=== PATIENT | male | born 1985 | race Two or more races ===

== ENCOUNTER 2020-08-20 12:07 | Inpatient (IN) ==
[2020-08-20] MEDS ORDERED: cefTRIAXone SODIUM 2,000 MG/70 ML BAG IV STA (12:42)
[2020-08-20] MEDS ORDERED: SODIUM CHLORIDE 0.9% 1000ML 2,000 ML IV ONE (12:44)
[2020-08-20] MEDS ORDERED: LORazepam 1 MG/2 ML VIAL IV STA (12:45)
[2020-08-20] MEDS ORDERED: SODIUM CHLORIDE 0.9% 1000ML 1,000 ML IV SCH (12:45)
--- NOTE | 2020-08-20 12:53 | Emergency Department Note ---
Impression & Plan Cellulitis, Hallucinations, Arm pain, left, Leukocytosis, Tachycardia ED Provider Note NAME: SIVAN BRITT AGE: 35 SEX: M : 1985 ARRIVES VIA: [employer] INFORMANT: Patient ED PROVIDER(S): Shady Lovelace DO CHIEF COMPLAINT: Visual and auditory hallucinations HPI: Patient is a 35-year-old male patient who presents to the ER brought in by police. He was driving erratically and was found in the parking lot and he was thinking people were in the back of the truck. He thinks people are in the room. He has a history of previous 302 days. 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 He does appear to be from [place] based on what police gathered. Denies any headache or change in vision. Admits to previous IV drug use. No chest pain or belly pain. Admits to wound on his left medial ankle and has pain on his left forearm. Notes that his arm has been hurting for several days. Denies any chest pain or shortness of breath. ROS: See above HPI for pertinent positives & negatives. A total of 10 systems reviewed and were otherwise negative. PAST MEDICAL HISTORY:See Below PAST SURGICAL HISTORY:See Below FAMILY HISTORY:See Below SOCIAL HISTORY:See Below HOME MEDICATIONS:See Below ALLERGIES:See Below VITALS:See Below PHYSICAL EXAMINATION: GENERAL: Sitting up in bed, alert, anxious, disheveled, continually repeats that he feels the bed is moving and is jittery. EYE EXAM: normal conjunctiva. OROPHARYNX: no exudate, no erythema, lips, buccal mucosa, and tongue normal and mucous membranes are moist NECK: supple, no nuchal rigidity, no adenopathy, non-tender LUNGS: Clear to auscultation. Normal chest wall mechanics HEART: Tachycardic, S1 normal and S2 normal ABDOMEN: abdomen soft, non-tender, normo-active bowel sounds, no masses, no rebound or guarding. BACK: Back is symmetrical on inspection and there is no deformity, no midline tenderness, no CVA tenderness. SKIN: no rashes and no bruising UPPER EXTREMITIES: Tattoos on upper extremities with firm redness over the left dorsal proximal forearm LOWER EXTREMITIES: No pitting edema. NEURO EXAM: N oriented to person, place and year, cranial nerves II-XII grossly intact, normal speech, no gross weakness of arms, no gross weakness of legs. PSYCH: Exhibiting clear visual and auditory hallucinations while sitting in the room moving around in the bed MEDICAL DECISION MAKING: Patient is a 35-year-old male who presents the ER brought in on a 302 petition. He is having visual and auditory hallucinations. On exam he has clear infection of his left forearm. IV was difficult to obtain secondary to lack of access/sites. Multiple times were obtained. Eventually obtained blood work which showed leukocytosis of 14,000. No significant anemia. INR was unremar kable. BMP along with LFTs was normal. Troponin was negative. Lactate was negative. Tox was negative including alcohol. Covid was negative. Ultrasound showed no focal abscess. Chest x-ray was unremarkable. He had difficulty sitting still for IV placement and was sedated with Haldol and Ativan due to the difficulty of obtaining an IV site. Patient to become slightly hypoxic. He was given IV fluids. Discussed the hospitalist admitted for further work-up. Triage Nursing notes reviewed. Limited review of prior medical records performed Vital Signs: reviewed and remarkable for tachy Differential diagnosis: Differential diagnoses includes but is not limited to toxic, metabolic, infectious, traumatic, cardiac, neurologic, hematologic, psychiatric and inflammatory etiologies. ER treatment provided: See below Diagnostics interpreted by me: ECG: Sinus tachycardia rate of 138 Normal axis No PVCs QTC 451 Cardiac Monitoring: An order was placed for continuous cardiac monitoring. The monitor shows a rate of 134 with sinus rhythm. Laboratory studies: As stated above and show below. Imaging studies: Portable AP upright 1 view of the chest shows no focal infiltrate pneumothorax Ultrasound left forearm shows no focal abscess Consultation(s): Discussed with Dr. Tomy Gifford for further evaluation Procedures: none Critical Care: None Past Med/Surg History Social History Smoking Status: Unknown if ever smoked Hx Alcohol Use: Yes (UNKNOWN - OBTUNDED) Hx Substance Use: Yes (UNKNOWN - OBTUNDED) Beliefs That Will Affect Care: None Current Living Situation: Other Current Living Situation Comment: UNKNOWN Results & Data (ED) Vital Signs Vital Signs - 24 hr 08/20/20 12:08 08/20/20 14:17 08/20/20 14:25 Temperature 37.2 C Temperature Source Oral Pulse Rate 133 H Pulse Rate [Right Finger] 124 H Respiratory Rate 20 24 Respiratory Effort / Characteristics Non-Labored Non-Labored Non-Labored Respiratory Depth Normal Blood Pressure 150/112 H Blood Pressure [Right Arm] 129/88 Blood Pressure Mean 124 Blood Pressure Mean [Right Arm] 101 Pulse Oximetry 99 99 99 Oxygen Delivery Method Room Air Room Air Room Air Oxygen Flow Rate Oxygen Flow Rate - Titration Pulse Oximetry Post Tiitration 08/20/20 16:00 08/20/20 16:01 08/20/20 16:50 Temperature Temperature Source Pulse Rate Pulse Rate [Right Finger] 109 H Respiratory Rate 22 16 Respiratory Effort / Characteristics Non-Labored Respiratory Depth Blood Pressure Blood Pressure [Right Arm] 104/62 Blood Pressure Mean Blood Pressure Mean [Right Arm] 76 Pulse Oximetry 93 93 89 L Oxygen Delivery Method Room Air Room Air Nasal Cannula Oxygen Flow Rate 0 Oxygen Flow Rate - Titration 2 Pulse Oximetry Post Tiitration 94 08/20/20 16:59 Temperature Temperature Source Pulse Rate Pulse Rate [Right Finger] 105 H Respiratory Rate 16 Respiratory Effort / Characteristics Respiratory Depth Blood Pressure Blood Pressure [Right Arm] 109/61 Blood Pressure Mean Blood Pressure Mean [Right Arm] 77 Pulse Oximetry 96 Oxygen Delivery Method Nasal Cannula Oxygen Flow Rate 2 Oxygen Flow Rate - Titration Pulse Oximetry Post Tiitration Laboratory Data Result diagrams: 08/20/20 14:03 08/20/20 14:03 Lab Results 08/20/20 08/20/20 08/20/20 Range/Units 13:50 13:50 14:03 WBC 14.19 H (4.8-10.8) K/uL RBC 4.56 L (4.7-6.1) M/uL Hgb 13.7 L (14.0-18.0) g/dL POC Hgb (14.0-18.0) g/dl Hct 38.4 L (42-52) % POC Hct (42-52) % MCV 84.2 (80-100) fL MCH 30.0 (25-34) pg MCHC 35.7 (32-36) g/dL RDW Std Deviation 42.5 (36.4-46.3) fL RDW Coeff of Kiara 13.8 (11.5-14.5) % Plt Count 157 (130-400) K/uL MPV 11.4 H (7.4-10.4) fL Immature Gran % (Auto) 0.2 % Neut % (Auto) 85.0 % Lymph % (Auto) 8.7 % [place] % (Auto) 5.6 % Eos % (Auto) 0.4 % Baso % (Auto) 0.1 % Neut # (Auto) 12.08 H (1.4-6.5) K/uL Lymph # (Auto) 1.23 (1.2-3.4) K/uL [place] # (Auto) 0.79 H (0.11-0.59) K/uL Eos # (Auto) 0.05 (0-0.5) K/uL Baso # (Auto) 0.01 (0-0.2) K/uL Immature Gran # (Auto) 0.03 H (0.00-0.02) K/uL PT (9.0-12.0) Seconds INR (0.9-1.1) APTT (21.0-31.0) Seconds PTT Ratio POC Sodium (135-144) mmol/L Sodium (136-145) mmol/L POC Potassium (3.3-5.0) mmol/L Potassium (3.5-5.1) mmol/L POC Chloride (101-112) mmol/L Chloride (98-107) mmol/L Carbon Dioxide (21-32) mmol/L POC Total CO2 (24-31) mmol/L Anion Gap (3-11) POC Anion Gap (16-25) mmol/L POC BUN (7-18) mg/dl BUN (7-18) mg/dl Creatinine (0.6-1.4) mg/dl POC Creatinine (0.6-1.3) mg/dl Est Cr Clr Drug Dosing ml/min Est GFR ( Amer) Est GFR (Non-Af Amer) BUN/Creatinine Ratio (10-20) Glucose (70-99) mg/dl POC Glucose (other) (70-99) mg/dl Lactate (0.4-2.0) mmol/L Calcium (8.5-10.1) mg/dl POC Ioniz Calcium Kylie (1.12-1.32) mmol/l Magnesium (1.8-2.4) mg/dl Total Bilirubin (0.2-1) mg/dl AST (15-37) U/L ALT (12-78) U/L Alkaline Phosphatase (45-117) U/L Troponin I (0-0.045) ng/ml Total Protein (6.4-8.2) gm/dl Albumin (3.4-5.0) gm/dl Globulin (2.5-4.0) gm/dl Albumin/Globulin Ratio (0.9-2) Procalcitonin (0-0.5) ng/ml TSH (0.300-4.500) uIu/ml Salicylates (2.8-20) mg/dl Acetaminophen (10-30) ug/ml Ethyl Alcohol mg/dL (0-3) mg/dl COVID-19 Eval [address] CovFluRsv at [facility] SARS-CoV-2 (PCR) NEGATIVE (Negative) Influenza Type A (PCR) Negative (Neg) Influenza Type B (PCR) Negative (Neg) RSV (RT-PCR) Negative (Neg) 08/20/20 08/20/20 08/20/20 Range/Units 14:03 14:03 14:03 WBC (4.8-10.8) K/uL RBC (4.7-6.1) M/uL Hgb (14.0-18.0) g/dL POC Hgb (14.0-18.0) g/dl Hct (42-52) % POC Hct (42-52) % MCV (80-100) fL MCH (25-34) pg MCHC (32-36) g/dL RDW Std Deviation (36.4-46.3) fL RDW Coeff of Kiara (11.5-14.5) % Plt Count (130-400) K/uL MPV (7.4-10.4) fL Immature Gran % (Auto) % Neut % (Auto) % Lymph % (Auto) % [place] % (Auto) % Eos % (Auto) % Baso % (Auto) % Neut # (Auto) (1.4-6.5) K/uL Lymph # (Auto) (1.2-3.4) K/uL [place] # (Auto) (0.11-0.59) K/uL Eos # (Auto) (0-0.5) K/uL Baso # (Auto) (0-0.2) K/uL Immature Gran # (Auto) (0.00-0.02) K/uL PT (9.0-12.0) Seconds INR (0.9-1.1) APTT (21.0-31.0) Seconds PTT Ratio POC Sodium (135-144) mmol/L Sodium 138 (136-145) mmol/L POC Potassium (3.3-5.0) mmol/L Potassium 3.7 (3.5-5.1) mmol/L POC Chloride (101-112) mmol/L Chloride 105 (98-107) mmol/L Carbon Dioxide 28 (21-32) mmol/L POC Total CO2 (24-31) mmol/L Anion Gap 5.0 (3-11) POC Anion Gap (16-25) mmol/L POC BUN (7-18) mg/dl BUN 14 (7-18) mg/dl Creatinine 0.93 (0.6-1.4) mg/dl POC Creatinine (0.6-1.3) mg/dl Est Cr Clr Drug Dosing 129.6 ml/min Est GFR ( Amer) 122.8 Est GFR (Non-Af Amer) 106.0 BUN/Creatinine Ratio 14.7 (10-20) Glucose 116 H (70-99) mg/dl POC Glucose (other) (70-99) mg/dl Lactate (0.4-2.0) mmol/L Calcium 8.9 (8.5-10.1) mg/dl POC Ioniz Calcium Kylie (1.12-1.32) mmol/l Magnesium 2.1 (1.8-2.4) mg/dl Total Bilirubin 0.6 (0.2-1) mg/dl AST 14 L (15-37) U/L ALT 26 (12-78) U/L Alkaline Phosphatase 77 (45-117) U/L Troponin I < 0.015 (0-0.045) ng/ml Total Protein 8.3 H (6.4-8.2) gm/dl Albumin 4.0 (3.4-5.0) gm/dl Globulin 4.3 H (2.5-4.0) gm/dl Albumin/Globulin Ratio 0.9 (0.9-2) Procalcitonin (0-0.5) ng/ml TSH 0.905 (0.300-4.500) uIu/ml Salicylates < 1.7 L (2.8-20) mg/dl Acetaminophen < 2 L (10-30) ug/ml Ethyl Alcohol mg/dL < 3.0 (0-3) mg/dl COVID-19 Eval Order SARS-CoV-2 (PCR) (Negative) Influenza Type A (PCR) (Neg) Influenza Type B (PCR) (Neg) RSV (RT-PCR) (Neg) 08/20/20 08/20/20 08/20/20 Range/Units 14:03 14:03 14:03 WBC (4.8-10.8) K/uL RBC (4.7-6.1) M/uL Hgb (14.0-18.0) g/dL POC Hgb (14.0-18.0) g/dl Hct (42-52) % POC Hct (42-52) % MCV (80-100) fL MCH (25-34) pg MCHC (32-36) g/dL RDW Std Deviation (36.4-46.3) fL RDW Coeff of Kiara (11.5-14.5) % Plt Count (130-400) K/uL MPV (7.4-10.4) fL Immature Gran % (Auto) % Neut % (Auto) % Lymph % (Auto) % [place] % (Auto) % Eos % (Auto) % Baso % (Auto) % Neut # (Auto) (1.4-6.5) K/uL Lymph # (Auto) (1.2-3.4) K/uL [place] # (Auto) (0.11-0.59) K/uL Eos # (Auto) (0-0.5) K/uL Baso # (Auto) (0-0.2) K/uL Immature Gran # (Auto) (0.00-0.02) K/uL PT 10.9 (9.0-12.0) Seconds INR 1.1 (0.9-1.1) APTT 25.3 (21.0-31.0) Seconds PTT Ratio 1.0 POC Sodium (135-144) mmol/L Sodium (136-145) mmol/L POC Potassium (3.3-5.0) mmol/L Potassium (3.5-5.1) mmol/L POC Chloride (101-112) mmol/L Chloride (98-107) mmol/L Carbon Dioxide (21-32) mmol/L POC Total CO2 (24-31) mmol/L Anion Gap (3-11) POC Anion Gap (16-25) mmol/L POC BUN (7-18) mg/dl BUN (7-18) mg/dl Creatinine (0.6-1.4) mg/dl POC Creatinine (0.6-1.3) mg/dl Est Cr Clr Drug Dosing ml/min Est GFR ( Amer) Est GFR (Non-Af Amer) BUN/Creatinine Ratio (10-20) Glucose (70-99) mg/dl POC Glucose (other) (70-99) mg/dl Lactate 1.3 (0.4-2.0) mmol/L Calcium (8.5-10.1) mg/dl POC Ioniz Calcium Kylie (1.12-1.32) mmol/l Magnesium (1.8-2.4) mg/dl Total Bilirubin (0.2-1) mg/dl AST (15-37) U/L ALT (12-78) U/L Alkaline Phosphatase (45-117) U/L Troponin I (0-0.045) ng/ml Total Protein (6.4-8.2) gm/dl Albumin (3.4-5.0) gm/dl Globulin (2.5-4.0) gm/dl Albumin/Globulin Ratio (0.9-2) Procalcitonin < 0.05 (0-0.5) ng/ml TSH (0.300-4.500) uIu/ml Salicylates (2.8-20) mg/dl Acetaminophen (10-30) ug/ml Ethyl Alcohol mg/dL (0-3) mg/dl COVID-19 Eval Order SARS-CoV-2 (PCR) (Negative) Influenza Type A (PCR) (Neg) Influenza Type B (PCR) (Neg) RSV (RT-PCR) (Neg) 08/20/20 Range/Units 14:11 WBC (4.8-10.8) K/uL RBC (4.7-6.1) M/uL Hgb (14.0-18.0) g/dL POC Hgb 13.6 L (14.0-18.0) g/dl Hct (42-52) % POC Hct 40 L (42-52) % MCV (80-100) fL MCH (25-34) pg MCHC (32-36) g/dL RDW Std Deviation (36.4-46.3) fL RDW Coeff of Kiara (11.5-14.5) % Plt Count (130-400) K/uL MPV (7.4-10.4) fL Immature Gran % (Auto) % Neut % (Auto) % Lymph % (Auto) % [place] % (Auto) % Eos % (Auto) % Baso % (Auto) % Neut # (Auto) (1.4-6.5) K/uL Lymph # (Auto) (1.2-3.4) K/uL [place] # (Auto) (0.11-0.59) K/uL Eos # (Auto) (0-0.5) K/uL Baso # (Auto) (0-0.2) K/uL Immature Gran # (Auto) (0.00-0.02) K/uL PT (9.0-12.0) Seconds INR (0.9-1.1) APTT (21.0-31.0) Seconds PTT Ratio POC Sodium 138 (135-144) mmol/L Sodium (136-145) mmol/L POC Potassium 3.8 (3.3-5.0) mmol/L Potassium (3.5-5.1) mmol/L POC Chloride 101 (101-112) mmol/L Chloride (98-107) mmol/L Carbon Dioxide (21-32) mmol/L POC Total CO2 28 (24-31) mmol/L Anion Gap (3-11) POC Anion Gap 14.0 L (16-25) mmol/L POC BUN 17 (7-18) mg/dl BUN (7-18) mg/dl Creatinine (0.6-1.4) mg/dl POC Creatinine 0.8 (0.6-1.3) mg/dl Est Cr Clr Drug Dosing ml/min Est GFR ( Amer) Est GFR (Non-Af Amer) BUN/Creatinine Ratio (10-20) Glucose (70-99) mg/dl POC Glucose (other) 122 H (70-99) mg/dl Lactate (0.4-2.0) mmol/L Calcium (8.5-10.1) mg/dl POC Ioniz Calcium Kylie 1.09 L (1.12-1.32) mmol/l Magnesium (1.8-2.4) mg/dl Total Bilirubin (0.2-1) mg/dl AST (15-37) U/L ALT (12-78) U/L Alkaline Phosphatase (45-117) U/L Troponin I (0-0.045) ng/ml Total Protein (6.4-8.2) gm/dl Albumin (3.4-5.0) gm/dl Globulin (2.5-4.0) gm/dl Albumin/Globulin Ratio (0.9-2) Procalcitonin (0-0.5) ng/ml TSH (0.300-4.500) uIu/ml Salicylates (2.8-20) mg/dl Acetaminophen (10-30) ug/ml Ethyl Alcohol mg/dL (0-3) mg/dl COVID-19 Eval Order SARS-CoV-2 (PCR) (Negative) Influenza Type A (PCR) (Neg) Influenza Type B (PCR) (Neg) RSV (RT-PCR) (Neg) Administered Medications Vancomycin HCl 2,000 mg/ (Sodium Chloride) 540 mls @ 200 mls/hr IV NOW ONE Stop: 08/20/20 20:11 Last Admin: 08/20/20 17:33 Dose: 200 mls/hr Documented by: [id number] Discontinued Medications Ceftriaxone Sodium (Ceftriaxone Sodium 2000mg/70ml D5w) Confirm Administered Dose 2,000 mg IV .STK-MED ONE Stop: 08/20/20 16:36 Last Admin: 08/20/20 16:40 Dose: Not Given Documented by: [id number] Haloperidol Lactate (Haloperidol Lactate 5 Mg/Ml 1 Ml Vial) 10 mg IM NOW STA Stop: 08/20/20 15:11 Last Admin: 08/20/20 15:15 Dose: 10 mg Documented by: [id number] Sodium Chloride (Nss 1000ml) 1,000 mls @ 999 mls/hr IV .Q1H1M KAREEM Stop: 08/20/20 13:43 Last Admin: 08/20/20 17:33 Dose: 999 mls/hr Documented by: [id number] Ceftriaxone Sodium (Rocephin) 2,000 mg in 70 mls @ 140 mls/hr IV NOW STA Stop: 08/20/20 13:11 Last Infusion: 08/20/20 17:10 Dose: 0 mls/hr Documented by: [id number] Admin: 08/20/20 16:38 Dose: 140 mls/hr Documented by: [id number] Sodium Chloride (Nss 1000ml) 2,000 mls @ 999 mls/hr IV .Q2H1M ONE Stop: 08/20/20 14:44 Last Admin: 08/20/20 16:38 Dose: 999 mls/hr Documented by: [id number] Lorazepam (Ativan) 1 mg in 2 mls @ 2 mls/min IV NOW STA Stop: 08/20/20 12:46 Last Admin: 08/20/20 16:40 Dose: Not Given Documented by: [id number] Lorazepam (Lorazepam 1 Mg Tab) 2 mg SL NOW STA Stop: 08/20/20 13:37 Last Admin: 08/20/20 13:55 Dose: 2 mg Documented by: [id number] Lorazepam (Lorazepam 2 Mg/Ml Vial (Im Use)) 2 mg IM NOW STA Stop: 08/20/20 15:12 Last Admin: 08/20/20 15:15 Dose: 2 mg Documented by: [id number] Discharge Plan Visit Data Chief Complaint: Mental Health Evaluation ED Provider: Shady Lovelace Discharge Problem: Cellulitis, Hallucinations, Arm pain, left, Leukocytosis, Tachycardia Patient Disposition: Admitted As Inpatient Discharge Instructions Interventions: ED Discharge Assessment Last Done: 08/20/20 17:45 Discharge Problem: Cellulitis Qualifiers: Site of cellulitis: unspecified site Qualified Code(s): L03.90 - Cellulitis, unspecified Leukocytosis Qualifiers: Leukocytosis type: unspecified Qualified Code(s): D72.829 - Elevated white blood cell count, unspecified
--- NOTE | 2020-08-20 13:12 | XRay Report ---
XR chest 1V portable CLINICAL HISTORY: Sepsis. COMPARISON STUDY: No previous studies for comparison. FINDINGS: Lung volumes are at the lower limits of normal. Lungs are clear. There is no pneumothorax o r pleural effusion. Cardiac size is normal. Mediastinal contours are normal. There is no evidence for pulmonary edema. IMPRESSION: No acute cardiopulmonary findings. ACT 112: Negative or not required by law. Electronically signed by: Redd Rothman M.D. 08/20/2020 1:11 PM
[2020-08-20] MEDS ORDERED: LORazepam 1 MG TAB SL STA (13:36)
[2020-08-20 14:17] LABS: Basophils # (auto) 0.01 K/uL (0-0.2); Basophils % (auto) 0.1 %; Eosinophils # (auto) 0.05 K/uL (0-0.5); Eosinophils % (auto) 0.4 %; Hematocrit (blood only) 38.4 % (42-52); Hemoglobin 13.7 g/dL (14.0-18.0); Immature Granulocytes # (auto) 0.03 K/uL (0.00-0.02); Immature Granulocytes % (auto) 0.2 %; Lymphocytes # (auto) 1.23 K/uL (1.2-3.4); Lymphocytes % (auto) 8.7 %; Mean Corpuscular Hgb Conc 35.7 g/dL (32-36); Mean Corpuscular Volume 84.2 fL (80-100); Mean Platelet Volume 11.4 fL (7.4-10.4); Monocytes # (auto) 0.79 K/uL (0.11-0.59); Monocytes % (auto) 5.6 %; Neutrophils # (auto) 12.08 K/uL (1.4-6.5); Platelet Count 157 K/uL (130-400); RDW Coefficient of Variation 13.8 % (11.5-14.5); RDW Standard Deviation 42.5 fL (36.4-46.3); Red Blood Count 4.56 M/uL (4.7-6.1); White Blood Count 14.19 K/uL (4.8-10.8)
[2020-08-20 14:25] LABS: iSTAT Creatinine 0.8 mg/dl (0.6-1.3); iSTAT Hemoglobin 13.6 g/dl (14.0-18.0); iSTAT Ionized Calcium 1.09 mmol/l (1.12-1.32); iSTAT Potassium 3.8 mmol/L (3.3-5.0)
[2020-08-20 14:41] LABS: Alanine Aminotransferase 26 U/L (12-78); Aspartate Aminotransferase 14 U/L (15-37); BUN Creatinine Ratio 14.7 (10-20); Blood Urea Nitrogen 14 mg/dl (7-18); Calcium 8.9 mg/dl (8.5-10.1); Carbon Dioxide 28 mmol/L (21-32); Chloride 105 mmol/L (98-107); Creatinine Clr Calc Pharmacy 129.6 ml/min; Est GFR (African American) 122.8; Glucose 116 mg/dl (70-99); Magnesium 2.1 mg/dl (1.8-2.4); Potassium 3.7 mmol/L (3.5-5.1); Sodium 138 mmol/L (136-145)
[2020-08-20 14:45] LABS: Acetaminophen < 2 ug/ml (10-30)
[2020-08-20 14:46] LABS: Salicylate < 1.7 mg/dl (2.8-20)
[2020-08-20 14:52] LABS: Albumin Globulin Ratio 0.9 (0.9-2); Alkaline Phosphatase 77 U/L (45-117); Bilirubin,Total 0.6 mg/dl (0.2-1); Globulin 4.3 gm/dl (2.5-4.0); Thyroid Stimulating Hormone 0.905 uIu/ml (0.300-4.500); Total Protein 8.3 gm/dl (6.4-8.2); Troponin I < 0.015 ng/ml (0-0.045)
[2020-08-20 15:02] LABS: Influenza A virus by PCR Negative (Neg); Influenza B virus by PCR Negative (Neg); RSV by PCR Negative (Neg); SARS CoV2 RNA(COVID-19) InHosp NEGATIVE (Negative)
--- NOTE | 2020-08-20 15:03 | Ultrasound Report ---
ULTRASOUND LEFT FOREARM NONVASCULAR CLINICAL HISTORY: Left arm warmth and erythema. COMPARISON STUDY: No priors. FINDINGS: Portable real-time grayscale and color flow sonography of the left forearm is performed at the indicated site of interest. Mild soft tissue edema is noted in this area. There is no organized f luid collection. The regional vessels appear patent. IMPRESSION: There is mild soft tissue edema in the left forearm at the site of interest. No organized fluid collection is identified. Electronically signed by: Magdy Montes De Oca M.D. 08/20/2020 3:02 PM
[2020-08-20] MEDS ORDERED: HALOPERIDOL LACTATE 5 MG/ML 1 ML VIAL IM STA (15:10)
[2020-08-20] MEDS ORDERED: LORazepam 2 MG/ML VIAL (IM USE) IM STA (15:11)
[2020-08-20 15:54] LABS: INR 1.1 (0.9-1.1); Partial Thromboplastin Time 25.3 Seconds (21.0-31.0); Prothrombin Time 10.9 Seconds (9.0-12.0)
[2020-08-20] MEDS ORDERED: cefTRIAXone SODIUM 2000MG/70ML D5W IV ONE (16:35)
--- NOTE | 2020-08-20 16:42 | History & Physical Report ---
Date of Service August 20, 2020 Assessment & Plan (1) Hallucinations: Visual - suspect secondary to activated delirium in setting of infection, possible psychiatric illness +/- illicit substances Urine toxicology pending Haldol 5mg IM Q4H PRN for severe delirium, Haldol 2mg PO Q4H PRN if able to take PO meds (2) Altered mental state: Currently medically sedated but protecting his airway. Consider transfer to ICU if unable to protect airway or needing increasing doses of sedation overnight. Given lack of focal neurological findings when he first came to the ER and multiple alternative etiologies suspected causing his symptoms will defer CT hea d on admission. Although current sedation limits current neurological evaluation. (3) Cellulitis: Vancomycin (suspected IVDU therefore increased risk of MRSA) + Ceftriaxone Follow up blood cultures Monitor WBC with AM labs (4) Hypoxia: Suspect secondary to sedation Aim O2 sats > 94% (5) Leukocytosis: Suspect secondary to cellulitis as above (6) Tachycardia: 3L NSS bolus given in ER Continue gentle IV hydration overnight Admission and Anticipated Discharge Date Admission Date: August 21, 2020 History of Present Illness Chief Complaint: Visual hallucinations Primary Care Provider: NO PCP Say Timmons is a 35-year-old male who presents from [facility] police office due to ongoing visual hallucinations and confusion. Unable to get any history from the patient when seen due to sedation from Haldol and Ativan. Per triage/ER/wrapper caser note: ship's officer called about patient driving vehicle erratically but did not find the vehicle. 45 minutes later officer was called for the same vehicle due to the patient screaming and upset someone had jumped into the bed of his truck when no one was there. While transporting to the hospital the patient believed someone was in the backseat with him pulling at his leg. He became increasingly confused and complained of some chest pain with visual hallucinations of someone was grabbing his leg and the police car therefore transported to [facility] for further evaluation. The patient was cooperative on arrival but continued to have visual hallucinations. Requiring frequent reassurance nothing was on or under the bed. 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 The patient denied use of drugs or alcohol. Patient reportedly very anxious in the emergency room. Reported that wounds on his legs and hands are from cutting down a tree in his front yard. Suicidal or homicidal ideation was unable to be assessed. The officer was reportedly able to get records from [place] where the patient is from showing history of drug use and a 302 that was placed in October 30, 2019 at [facility]. Patient was found with a vaping pen but no illicit substances. 302 warrant placed by police officer booking. In the ER he was walking and moving all 4 limbs, no headache or change in vision, very anxious and having visual hallucinations. He had difficulty sitting for IV placement therefore was sedated with IV haloperidol and Ativan. He was referred to medicine for admission and ongoing management of Past Med/Surg History Social History Smoking Status: Unknown if ever smoked Hx Alcohol Use: Yes (UNKNOWN - OBTUNDED) Hx Substance Use: Yes (UNKNOWN - OBTUNDED) Beliefs That Will Affect Care: None Current Living Situation: Other Current Living Situation Comment: UNKNOWN Review of Systems Review of Systems: Unobtainable due to reduced consciousness Physical Exam Constitutional: + obese; no acute distress Eyes: PERRL, conjunctivae normal, anicteric sclerae Neck: trachea midline, no thyromegaly Respiratory: normal respiratory effort, lungs clear to auscultation Cardiovascular: RRR, no murmur, no edema Skin: + erythema (most notably on LLE with 10cm radial surrounding crusting wound warm/swolle); no fluctulance Trauma: + evidence of skin trauma (Multiple puncture wounds on both hands) Neurologic: + not awake (GCS8 [id number]) Psychiatric: Orientation: + not alert (To noxious stimuli) and + not oriented x 3 Results & Data Results & Data ([facility]) Vital Signs (Past 12 Hours) Vital Signs Temp Pulse Pulse Resp BP BP Pulse Ox 08/20/20 16:01 109 H 16 104/62 93 08/20/20 16:00 22 93 08/20/20 14:25 124 H 24 129/88 99 08/20/20 14:17 99 08/20/20 12:08 37.2 C 133 H 20 150/112 H 99 Diagnostic Findings XR chest 1V portable IMPRESSION: No acute cardiopulmonary findings. ULTRASOUND LEFT FOREARM NONVASCULAR IMPRESSION: There is mild soft tissue edema in the left forearm at the site of interest. No organized fluid collection is identified. Medications Administered ER Medications given: NSS 3L bolus Ceftriaxone 2g IV Lorazepam 2mg SL Haloperidol 10mg IM Lorazepam 2mg IM ECG Rate (beats per minute): 138 Rhythm: sinus tachycardia Findings: no acute ischemic change Comparison ECG Date: no prior available Code Status & VTE Plan Code Status Full code presumed VTE Prophylaxis Plan VTE Prophylaxis will be ordered: No Reason for no VTE drug order: Treatment not indicated Reason for no VTE mechanical prophylaxis: Treatment not indicated PG Care Time/CCT Total # of Minutes Spent Total Time Spent with Patient: Total time spent is greater than 50% in coordination of care (as documented) at patient's floor/unit and/or counseling patient: Coding Level of Care Code 51036 Initial Inpt Care Lvl 3 Diagnoses Hallucinations R44.3 Altered mental state R41.0 Altered mental status type: delirium Cellulitis L03.90 Site of cellulitis: unspecified site Hypoxia R09.02 Leukocytosis D72.829 Leukocytosis type: unspecified Tachycardia R00.0 (1) Cellulitis Site of cellulitis: unspecified site Qualified Code(s): L03.90 - Cellulitis, unspecified (2) Leukocytosis Leukocytosis type: unspecified Qualified Code(s): D72.829 - Elevated white blood cell count, unspecified (3) Altered mental state Altered mental status type: delirium Qualified Code(s): R41.0 - Disorientation, unspecified
[2020-08-20] MEDS ORDERED: VANCOMYCIN CONSULT ACTIVE PRN (17:13)
[2020-08-20] MEDS ORDERED: VANCOMYCIN HCL 2,000 MG in SODIUM CHLORIDE 0.9% 500 ML IV ONE (17:30)
[2020-08-20] MEDS ORDERED: HALOPERIDOL LACTATE 5 MG/ML 1 ML VIAL IV PRN (18:18)
[2020-08-20] MEDS ORDERED: HALOPERIDOL LACTATE 5 MG/ML 1 ML VIAL IM PRN (20:33)
[2020-08-20] MEDS ORDERED: haloperidoL 1 MG TAB PO PRN (20:33)
[2020-08-20] MEDS: SODIUM CHLORIDE 0.9% 1000ML 1,000 ML IV SCH (20:33)
[2020-08-20] MEDS ORDERED: PATIENT'S ALLERGY INFO NEEDS ENTERED STA (20:46)
[2020-08-21] MEDS ORDERED: VANCOMYCIN HCL 1,250 MG in SODIUM CHLORIDE 0.9% 250 ML IV SCH (04:00)
[2020-08-21] MEDS: SODIUM CHLORIDE 0.9% 1000ML 1,000 ML IV SCH ×2 (04:15→12:35)
[2020-08-21 11:53] LABS: Basophils # (auto) 0.01 K/uL (0-0.2); Basophils % (auto) 0.1 %; Eosinophils # (auto) 0.13 K/uL (0-0.5); Eosinophils % (auto) 1.8 %; Hematocrit (blood only) 31.3 % (42-52); Hemoglobin 10.8 g/dL (14.0-18.0); Immature Granulocytes # (auto) 0.01 K/uL (0.00-0.02); Immature Granulocytes % (auto) 0.1 %; Lymphocytes # (auto) 1.23 K/uL (1.2-3.4); Lymphocytes % (auto) 17.3 %; Mean Corpuscular Hemoglobin 29.6 pg (25-34); Mean Corpuscular Hgb Conc 34.5 g/dL (32-36); Mean Corpuscular Volume 85.8 fL (80-100); Mean Platelet Volume 11.1 fL (7.4-10.4); Monocytes % (auto) 5.6 %; Neutrophils # (auto) 5.35 K/uL (1.4-6.5); Neutrophils % (auto) 75.1 %; Platelet Count 107 K/uL (130-400); RDW Coefficient of Variation 13.8 % (11.5-14.5); RDW Standard Deviation 43.3 fL (36.4-46.3); Red Blood Count 3.65 M/uL (4.7-6.1); White Blood Count 7.13 K/uL (4.8-10.8)
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
[2020-08-21 12:04] LABS: Albumin Globulin Ratio 0.9 (0.9-2); Albumin Level 2.8 gm/dl (3.4-5.0); BUN Creatinine Ratio 12.4 (10-20); Bilirubin,Total 0.4 mg/dl (0.2-1); Calcium 8.1 mg/dl (8.5-10.1); Creatinine Clr Calc Pharmacy 182.6 ml/min; Est GFR (African American) 145.2; Est GFR (Non-African American) 125.3; Potassium 3.6 mmol/L (3.5-5.1); Total Protein 5.8 gm/dl (6.4-8.2)
--- NOTE | 2020-08-21 13:22 | Pharmacy Report ---
Pharmacy Abx Dose Short Note - Date of Service August 21, 2020 - Assessment & Plan Assessment 35 year old M started on vancomycin/ceftriaxone for possible cellulitis. Per notes suspect IVDA. Blood cultures x 2 are pending. Plan Vancomycin * Vancomycin 1999 x 1 given as loading dose last evening * Plan to start vancomycin 1250 mg iv q8 hr to achieve an estimated trough ~15- 20 mcg/ml * Estimated kinetics: t1/2<8 hr, CrCl >100 * Plan to order trough if continued >48 hrs Pharmacy will continue to follow and will adjust dose/frequency as necessary. Thank you.
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
[2020-08-21] MEDS ORDERED: Nursing to Pharmacy Communication SCH (14:00)
--- NOTE | 2020-08-21 14:27 | Electrocardiogram Report ---
Test Reason : Blood Pressure : / mmHG Vent. Rate : 138 BPM Atrial Rate : 138 BPM P-R Int : 134 ms QRS Dur : 084 ms QT Int : 298 ms P-R-T Axes : 054 031 050 degrees QTc Int : 451 ms Sinus tachycardia Otherwise normal ECG No previous ECGs available Confirmed by Vahid Mantilla ([id number]) on 08/21/2020 2:26:39 PM Referred By: REFERRED SELF Confirmed By:Vahid Mantilla
--- NOTE | 2020-08-21 14:40 | Electrocardiogram Report ---
Test Reason : Blood Pressure : / mmHG Vent. Rate : 100 BPM Atrial Rate : 100 BPM P-R Int : 134 ms QRS Dur : 096 ms QT Int : 378 ms P-R-T Axes : 013 039 042 degrees QTc Int : 487 ms Normal sinus rhythm Prolonged QT Abnormal ECG When compared with ECG of 20-AUG-2020 12:30, (unconfirmed) No significant change was found Confirmed by Vahid Mantilla ([id number]) on 08/21/2020 2:39:34 PM Referred By: REFERRED SELF Confirmed By:Vahid Mantilla
[2020-08-21 14:53] LABS: Amphetamines+Metham, Urine Pos (Neg); Barbiturates, Urine Neg (Neg); Benzodiazepine, Urine Pos (Neg); Cocaine, Urine Pos (Neg); MDMA (Ecstacy), Urine Pos (Neg); Methadone, Urine Neg (Neg); Opiate, Urine Neg (Neg); Phencyclidine, Urine Neg (Neg)
[2020-08-21 15:02] LABS: Appearance Urine Clear (Clear); Bacteria Urine Automated Negative (Negative); Bilirubin Urine Negative (Negative); Blood Urine Negative (Negative); Color Urine Dark Yellow; Epithelial Cell Urine Auto 0-5 /lpf (0-5); Glucose Urine UA Negative (Negative); Ketones Urine Trace (Negative); Leukocyte Esterase Urine Negative (Negative); Nitrite Urine Negative (Negative); Protein Urine Trace (Negative); RBC Urine Automated 0-4 /hpf (0-4); Specific Gravity Urine 1.034 (1.000-1.030); Urobilinogen Urine Negative (Negative)
[2020-08-21] MEDS: VANCOMYCIN HCL 1,250 MG in SODIUM CHLORIDE 0.9% 250 ML IV SCH ×2 (15:14→21:36)
[2020-08-21] MEDS: cefTRIAXone SODIUM 2,000 MG in DEXTROSE 5% 50 ML IV SCH ×2 (17:08→20:06)
[2020-08-22] MEDS: VANCOMYCIN HCL 1,250 MG in SODIUM CHLORIDE 0.9% 250 ML IV SCH ×3 (05:44→23:06)
[2020-08-22 07:45] LABS: Creatinine Clr Calc Pharmacy 180.7 ml/min; Est GFR (African American) 144.3; Est GFR (Non-African American) 124.5
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
--- NOTE | 2020-08-22 10:49 | XRay Report ---
LEFT TIBIA AND FIBULA 2 VIEWS CLINICAL HISTORY: Left leg infection. FINDINGS: AP and lateral views of the left tibia and fibula are obtained. No prior studies are availa ble for comparison at the time of dictation. The skeletal structures are well mineralized. No acute f racture is identified. There is chronic posttraumatic deformity of the distal tibia with a buttress p late in place along the lateral cortex. Numerous cortical lag screws are in place. The orthopedic bianca dware appears intact. Screw tracks are noted in the proximal tibial shaft. Chronic appearing periosti tis is seen along the medial aspect of the distal tibial shaft. No erosive change is identified. The knee and ankle joints are grossly maintained. Mild soft tissue edema is present in the distal calf an d around the ankle. IMPRESSION: 1. Soft tissue swelling with no acute bony abnormality identified. 2. Chronic posttraumatic and postoperative changes as above. 3. Chronic appearing periostitis is seen along the medial aspect of the distal tibial shaft. Correlat e with any prior imaging studies. Electronically signed by: Magdy Montes De Oca M.D. 08/22/2020 10:48 AM
[2020-08-22] MEDS: LORazepam 1 MG/2 ML VIAL IV PRN ×3 (13:00→20:43)
--- NOTE | 2020-08-22 14:36 | Hospitalist Progress Note ---
Date of Service August 22, 2020 Assessment & Plan (1) Hallucinations: Visual - suspect secondary to multisubstance abuse. Now resolved. Psychiatry consultation noted. 302 has been discontinued. Toxicology positive for methamphetamine, benzodiazepine, cocaine, marijuana (2) Altered mental state: Resolved. Tox screen positive for multisubstance abuse . Psychiatry evaluation appreciated. 302 discontinued. Supportive care. (3) Cellulitis: Vancomycin (suspected IVDU therefore increased risk of MRSA) + Ceftriaxone Follow up blood cultures. Wound nurse consult. Further evaluation of persistent left lower extremity wound and drainage with known underlying old traumatic injury and orthopedic hardware left lower extremity. Orthopedic consultation requested. X-ray today. Obtain wound culture (4) Hypoxia: Suspect secondary to sedation. Resolved (5) Leukocytosis: Suspect secondary to cellulitis (6) Tachycardia: Resolved with fluid resuscitation DVT prophylaxis: Lovenox daily Disposition: Eventual discharge to home Admission and Anticipated Discharge Date Admission Date: August 20, 2020 Subjective The patient is now alert and oriented. Tox screen is positive for methamphetamine, benzodiazepine, cocaine, marijuana. Psychiatry consultation noted. 302 has been canceled. Orthopedic evaluation requested for evaluation of the left lower extremity chronic wound and hardware. X-ray reveals evidence of periostosis but no definite evidence of osteomyelitis although he does have drainage from the chronic left lower extremity wound and cultures were obtained. He remains on Rocephin and vancomycin. There is a high suspicion for underlying osteomyelitis. Left arm cellulitis is improving with Rocephin and vancomycin Review of Systems Review of Systems: All systems reviewed & are unremarkable except as noted in HPI & below Physical Exam Physical Exam: General-alert and oriented x3, no fevers, no chills HEENT-head atraumatic and normocephalic, TMs intact bilaterally, pupils equal and reactive to light, extraocular muscles intact Neck-no lymphadenopathy or thyromegaly, trachea midline Chest-clear to auscultation percussion. No rales wheezing or rhonchi Cardiac-regular rate and rhythm, normal S1 and S2, no murmurs Abdomen-normal bowel sounds, nontender, no hepatosplenomegaly Extremities-multiple excoriations and skin injury sites with surrounding er ythema on both legs and both hands and arms. Cellulitis left forearm is improving. Chronic scabbed wound left lower extremity is able to express some discolored material raising the possibility of infected orthopedic hardware within the left lower extremity. Neuro-cranial nerves II through XII intact, motor and sensory function within normal limits, strength symmetrical , no focal deficits Psych-normal affect, normal mood Results & Data Results & Data ([facility]) Vital Signs (Past 12 Hours) Vital Signs Temp Pulse Pulse Resp BP BP Pulse Ox 08/22/20 11:30 102 H 18 149/93 H 96 08/22/20 07:43 93 H 08/22/20 07:02 36.5 C 93 H 16 127/76 95 08/22/20 03:53 36.7 C 95 H 18 129/83 96 Laboratory Results 08/21/20 11:21 08/22/20 05:38 PG Care Time/CCT Total # of Minutes Spent Total Time Spent with Patient: Total time spent is greater than 50% in coordination of care (as documented) at patient's floor/unit and/or counseling patient: Coding Level of Care Code 47206 Subseq Hosp Care Lvl 3 Diagnoses Hallucinations R44.3 Altered mental state R41.0 Altered mental status type: delirium Cellulitis L03.90 Site of cellulitis: unspecified site Hypoxia R09.02 Leukocytosis D72.829 Leukocytosis type: unspecified Tachycardia R00.0 (1) Altered mental state Altered mental status type: delirium Qualified Code(s): R41.0 - Disorientation, unspecified (2) Cellulitis Site of cellulitis: unspecified site Qualified Code(s): L03.90 - Cellulitis, unspecified (3) Leukocytosis Leukocytosis type: unspecified Qualified Code(s): D72.829 - Elevated white blood cell count, unspecified
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
[2020-08-22] MEDS: cefTRIAXone SODIUM 2,000 MG in DEXTROSE 5% 50 ML IV SCH (16:30)
[2020-08-23] MEDS: LORazepam 1 MG/2 ML VIAL IV PRN ×6 (00:12→13:29)
[2020-08-23] MEDS ORDERED: VANCOMYCIN TROUGH ONE (05:30)
[2020-08-23] MEDS: VANCOMYCIN HCL 1,250 MG in SODIUM CHLORIDE 0.9% 250 ML IV SCH ×2 (06:17→14:26)
[2020-08-23 06:27] LABS: BUN Creatinine Ratio 9.4 (10-20); Calcium 8.2 mg/dl (8.5-10.1); Creatinine Clr Calc Pharmacy 175.5 ml/min; Est GFR (African American) 142.6; Potassium 3.3 mmol/L (3.5-5.1)
[2020-08-23 06:57] LABS: Basophils # (auto) 0.02 K/uL (0-0.2); Basophils % (auto) 0.3 %; Eosinophils # (auto) 0.13 K/uL (0-0.5); Eosinophils % (auto) 1.7 %; Hematocrit (blood only) 32.9 % (42-52); Hemoglobin 11.8 g/dL (14.0-18.0); Immature Granulocytes # (auto) 0.01 K/uL (0.00-0.02); Immature Granulocytes % (auto) 0.1 %; Lymphocytes % (auto) 21.8 %; Mean Corpuscular Hemoglobin 29.4 pg (25-34); Mean Corpuscular Volume 81.8 fL (80-100); Monocytes # (auto) 0.52 K/uL (0.11-0.59); Monocytes % (auto) 6.7 %; Neutrophils # (auto) 5.43 K/uL (1.4-6.5); Neutrophils % (auto) 69.4 %; Platelet Count 139 K/uL (130-400); RDW Coefficient of Variation 13.3 % (11.5-14.5); RDW Standard Deviation 40.1 fL (36.4-46.3); Red Blood Count 4.02 M/uL (4.7-6.1); White Blood Count 7.81 K/uL (4.8-10.8)
[2020-08-23 06:59] LABS: Mean Corpuscular Hgb Conc 35.9 g/dL (32-36)
--- NOTE | 2020-08-23 07:45 | Pharmacy Report ---
Pharmacy Abx Dose Progress Nt - Date of Service August 23, 2020 - Pharmacy Dosing Scope The patient is currently receiving the following antimicrobial agents per Pharmacy consult: VANCOMYCIN 1250mg IV Q8hrs Also receiving Ceftriaxone 2gm IV Q24hrs - Objective Vital Signs (Past 12hrs): Vital Signs Temp Pulse Pulse Resp BP Pulse Ox 08/23/20 07:06 36.6 C 85 18 145/93 H 98 08/23/20 03:23 36.6 C 94 H 18 146/81 H 97 08/22/20 23:15 36.9 C 91 H 18 129/81 98 08/22/20 23:00 100 H Lab Results (24hrs): Laboratory Tests (24 Hours) 08/23/20 08/23/20 08/23/20 06:39 05:25 05:25 WBC 7.81 Cancelled Neut # (Auto) 5.43 Cancelled Creatinine Est Cr Clr Drug Dosing Vancomycin Trough 18.2 08/23/20 08/22/20 05:25 05:38 WBC Neut # (Auto) Creatinine 0.69 0.67 Est Cr Clr Drug Dosing 175.5 180.7 Vancomycin Trough Micro Results: 08/20/20 18:52 Anaerobic Blood Culture - Final Blood 08/22/20 14:05 Gram Stain - Pending Leg,Left Wound Culture - Pending 08/20/20 14:03 Anaerobic Blood Culture - Final Blood - Risk Factors for Resistance * IV drug Use * Hardware - Assessment & Plan Assessment 35 year old M receiving Vancomycin + ceftriaxone for treatment of left forearm SST (r/o abscess) and possible left lower leg osteomyelitis with previous hardware Day # 4 of antimicrobial therapy Renal function is stable and at baseline Plan Vancomycin IV * Trough level of 18.2 mcg/mL is therapeutic * Continue dose of 1,250 mg IV every 8 hours * Goal trough level for SST with possible osteo : 15 to 20 mcg/mL * Will re-order a trough level in a few days or sooner if clinically warranted. Ceftriaxone * Continue 2 g IV Q24hrs. Pharmacy will continue to follow and will adjust dose/frequency as necessary. Thank you.
[2020-08-23] MEDS ORDERED: POTASSIUM CHLORIDE CRTAB 20 MEQ TABCR PO STA (09:10)
--- NOTE | 2020-08-23 13:32 | Hospitalist Progress Note ---
Date of Service August 23, 2020 Assessment & Plan (1) Hallucinations: Visual - suspect secondary to multisubstance abuse. Now resolved. Psychiatry consultation noted. 302 has been discontinued. Toxicology positive for methamphetamine, benzodiazepine, cocaine, marijuana (2) Altered mental state: Resolved. Tox screen positive for multisubstance abuse . Psychiatry evaluation appreciated. 302 discontinued. Supportive care. (3) Cellulitis: Vancomycin (suspected IVDU therefore increased risk of MRSA) + Ceftriaxone. Blood cultures negative. Orthopedic consultation appreciated. MRI scan left forearm today. If abscess pocket is detected, he will need incision and drainage procedure. Wound nurse consult. No apparent osteomyelitis of the left lower leg old trauma site. X-ray results noted. Awaiting wound culture results (4) Hypoxia: Suspect secondary to sedation. Resolved (5) Leukocytosis: secondary to cellulitis (6) Tachycardia: Resolved with fluid resuscitation DVT prophylaxis: Lovenox daily Disposition: Eventual discharge to home Admission and Anticipated Discharge Date Admission Date: August 20, 2020 Subjective Alert and oriented. Left arm is swollen and indurated. Ortho consult noted. Left forearm MRI today. No apparent osteomyelitis associated with hardware in the left lower extremity. The patient does not want to consider plastic surgery at this facility since he lives in [place]. He remains on Rocephin and vancomycin for now. If abscess is detected in the left forearm then he will need incision and drainage procedure. Potassium replacement underway. Review of Systems Review of Systems: All systems reviewed & are unremarkable except as noted in HPI & below Physical Exam Physical Exam: General-alert and oriented x3, no fevers, no chills HEENT-head atraumatic and normocephalic, TMs intact bilaterally, pupils equal and reactive to light, extraocular muscles intact Neck-no lymphadenopathy or thyromegaly, trachea midline Chest-clear to auscultation percussion. No rales wheezing or rhonchi Cardiac-regular rate and rhythm, normal S1 and S2, no murmurs Abdomen-normal bowel sounds, nontender, no hepatosplenomegaly Extremities-no cyanosis, clubbing. Left forearm swelling, tenderness, induration dorsally. No apparent fluctuant pocket. Neuro-cranial nerves II through XII intact, motor and sensory function within normal limits, strength symmetrical 5/5, no focal deficits Psych-normal affect, normal mood Results & Data Results & Data ([facility]) Vital Signs (Past 12 Hours) Vital Signs Temp Pulse Resp BP Pulse Ox 08/23/20 11:17 36.6 C 88 18 139/83 98 08/23/20 07:06 36.6 C 85 18 145/93 H 98 08/23/20 03:23 36.6 C 94 H 18 146/81 H 97 Laboratory Results 08/23/20 06:39 08/23/20 05:25 PG Care Time/CCT Total # of Minutes Spent Total Time Spent with Patient: Total time spent is greater than 50% in coordination of care (as documented) at patient's floor/unit and/or counseling patient: Coding Level of Care Code 49012 Subseq Hosp Care Lvl 3 Diagnoses Hallucinations R44.3 Altered mental state R41.0 Altered mental status type: delirium Cellulitis L03.90 Site of cellulitis: unspecified site Hypoxia R09.02 Leukocytosis D72.829 Leukocytosis type: unspecified Tachycardia R00.0 (1) Altered mental state Altered mental status type: delirium Qualified Code(s): R41.0 - Disorientation, unspecified (2) Cellulitis Site of cellulitis: unspecified site Qualified Code(s): L03.90 - Cellulitis, unspecified (3) Leukocytosis Leukocytosis type: unspecified Qualified Code(s): D72.829 - Elevated white blood cell count, unspecified
[2020-08-25 12:22] LABS: 7-Aminoclonaz, Confirm 419 ng/mL (<25); Amphetamine Urine, Confirm >15000 ng/mL (<250); Cocaine, Urine >15000 ng/mL (<100); Hydro-Alp Ur, GC/MS 755 ng/mL (<25); Hydroxyethylflurazepam, Conf NEGATIVE ng/mL (<50); Hydroxymidazolam Ur, GC/MS NEGATIVE ng/mL (<50); Hydroxytriazolam NEGATIVE ng/mL (<50); Lorazepam, Ur GC/MS 1100 ng/mL (<50); MDA negative; MDEA negative; MDMA (Ecstasy) Urine, Confirm negative; Marijuana Quant, GCMS Urine 37 ng/mL (<5); Methamphetamine, Ur Confirm >15000 ng/mL (<250); Nordiazepam, Confirm NEGATIVE ng/mL (<50); Oxazepam Ur, GC/MS NEGATIVE ng/mL (<50); Temazepam, Confirm NEGATIVE ng/mL (<50)
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
== END 2020-08-23 14:51 | disposition home or self-care (01) | DRG 602 ==
LOC: ED 12:07 → 2S 17:24 → SUATTDRO 17:24 → 2S 17:45